=== PATIENT | female | born 1990 | race Two or more races ===

== ENCOUNTER 2023-07-12 09:05 | Inpatient (IN) | payer BC ==
[~2023-07-12] VITALS: Ht 160 cm; Wt 92.0 kg
[2023-07-12] VITALS (8 sets, daily range): BP systolic 116–148; BP diastolic 59–89; TEMP 98.3; O2SAT 96–99
[2023-07-12] MEDS ORDERED: PRENTAB9 PO (09:13)
[2023-07-12] MEDS ORDERED: LACTATED RINGER'S 1000 ML IV STA ×2 (09:46→09:48)
[2023-07-12 09:48] LABS: HEMATOCRIT 37.7 % (36.0-47.0); HEMOGLOBIN 12.8 g/dl (12.0-15.5); MEAN CORPUSCULAR HEMOGLOBIN 31.4 pg (27.0-33.0); MEAN CORPUSCULAR VOLUME 92.4 fl (80.0-96.0); PLATELET COUNT, AUTOMATED 197 10^3/uL (150-450); RED BLOOD COUNT 4.08 10^6/uL (4.00-5.40); WHITE BLOOD COUNT 18.3 10^3/uL (4.0-10.0)
[2023-07-12] MEDS ORDERED: NALOXONE INJ 0.4MG/1ML VIAL IV PRN ×2 (09:50)
[2023-07-12] MEDS ORDERED: ONDANSETRON 4MG 2ML VIAL IV PRN ×2 (09:50→11:15)
[2023-07-12] MEDS ORDERED: BICITRA 30ML SOLN UDC PO ONE ×2 (09:50→10:00)
[2023-07-12] MEDS ORDERED: diphenhydrAMINE 50MG/ML VIAL IV PRN (09:50)
[2023-07-12] MEDS ORDERED: METOCLOPRAMIDE INJ 10MG/2ML VIAL IV PRN ×2 (09:50)
[2023-07-12] MEDS ORDERED: OXYTOCIN DRIP 30 UNITS in IV 1 EA IV PRN (09:50)
[2023-07-12] MEDS ORDERED: **NOTE PATIENT COMMENT** MISC XX SCH (09:50)
[2023-07-12] MEDS ORDERED: CARBOPROST TROMETHAMINE 250 MCG/ML AMP IM PRN (09:50)
[2023-07-12] MEDS ORDERED: LIDOCAINE 1% MDV 20ML VIAL INFIL PRN (09:50)
[2023-07-12] MEDS ORDERED: TRANEXAMIC ACID INJection 1,000 MG in NS 100 ML IV PRN (09:50)
[2023-07-12] MEDS ORDERED: METHYLERGONOVINE MALEATE 0.2MG/ML 1ML VIAL IM PRN (09:50)
[2023-07-12] MEDS ORDERED: fentaNYL 100 MCG/2 ML INJECTION IV PRN (09:50)
[2023-07-12] MEDS ORDERED: LR 1,000 ML IV SCH ×2 (09:50)
[2023-07-12] MEDS ORDERED: MEPERIDINE 25 MG/ML 1ML VIAL IV PRN (09:50)
[2023-07-12] MEDS ORDERED: oxyCODONE 5MG TAB PO PRN (09:50)
[2023-07-12] MEDS ORDERED: AZITHROMYCIN INJ 500 MG, VIAL MATE ADAPTER 1 EACH in NS 250 ML IV ONE (10:00)
[2023-07-12] MEDS ORDERED: MORPHINE PRES-FREE INJ 10 MG/10 ML VIAL As Ordered ONE (10:20)
[2023-07-12] MEDS ORDERED: ACETAMINOPHEN 1000MG 100ML IV BAG As Ordered ONE (10:20)
[2023-07-12] MEDS ORDERED: ONDANSETRON 4MG 2ML VIAL As Ordered ONE (10:20)
[2023-07-12] MEDS ORDERED: OXYTOCIN 30UNITS IN 0.9% NaCl 500ML IV BAG As Ordered ONE ×2 (10:21→11:01)
[2023-07-12] MEDS ORDERED: KETOROLAC 60MG 2ML VIAL As Ordered ONE (10:35)
[2023-07-12 10:49] LABS: CORD GAS ABE A -9.2; CORD GAS HCO3 A 20.4 MMOL/L; CORD GAS O2 SAT A 32.2 %; CORD GAS PCO2 A 59.5 mmHg; CORD GAS PH A 7.154 UNITS; CORD GAS PO2 A 19.1 mmHg; CORD GAS SBC A 15.8 MMOL/L; CORD GAS TCO2 A 22.3 MMOL/L
[2023-07-12 10:51] LABS: CORD GAS ABE V -5.9; CORD GAS HCO3 V 21.8 MMOL/L; CORD GAS PCO2 V 50.5 mmHg; CORD GAS PH V 7.253 UNITS; CORD GAS PO2 V 28.3 mmHg; CORD GAS TCO2 V 23.3 MMOL/L
[2023-07-12] MEDS ORDERED: ceFAZolin SOD 2 GM in IV 1 EA IV ONE (11:00)
[2023-07-12] MEDS ORDERED: ePHEDrine SULFATE 25 MG/5 ML(5MG/ML) SYRINGE As Ordered ONE (11:09)
[2023-07-12] MEDS ORDERED: PHENYLephrine 500MCG 5ML (100MCG/ML) SYRINGE As Ordered ONE (11:10)
[2023-07-12] MEDS ORDERED: OXYTOCIN DRIP 30 UNITS in IV 1 EA IV SCH (11:15)
[2023-07-12] MEDS ORDERED: RHOGAM 300MCG (1500IU) INJ IM SCH (11:15)
[2023-07-12] MEDS ORDERED: SIMETHICONE 80MG CHEW TAB PO PRN (11:15)
[2023-07-12] MEDS ORDERED: ANUSOL HC CREAM 30GM TOP PRN (11:15)
[2023-07-12] MEDS ORDERED: MORPHINE 4 MG/ML 1ML VIAL IV PRN (11:15)
[2023-07-12] MEDS ORDERED: COLA100C5 PO (11:22)
[2023-07-12] MEDS ORDERED: IBUP80TA PO (11:22)
[2023-07-12] MEDS ORDERED: PERCOCET PO (11:22)
[2023-07-12] MEDS: SLF 3 ML SYR IV SCH ×2 (12:00→20:00)
[2023-07-12] MEDS ORDERED: HOME MED LIST COMPLETE! XX SCH (15:05)
[2023-07-12] MEDS ORDERED: ACETAMINOPHEN 500 MG TAB PO PRN (16:00)
[2023-07-12] MEDS: LR 1,000 ML IV SCH ×2 (16:12→19:59)
[2023-07-12] MEDS: DOCUSATE SODIUM 100MG CAPSULE PO SCH (19:55)
[2023-07-12] MEDS: KETOROLAC 30 MG/ML 1ML VIAL IV SCH (19:57)
[2023-07-13] MEDS: KETOROLAC 30 MG/ML 1ML VIAL IV SCH ×2 (01:05→06:16)
[2023-07-13 02:00] VITALS: BP 112/62; O2SAT 99
[2023-07-13] MEDS: LR 1,000 ML IV SCH (03:36)
[2023-07-13] MEDS: SLF 3 ML SYR IV SCH (04:07)
[2023-07-13 06:00] VITALS: BP 117/65; O2SAT 98
[2023-07-13 06:40] LABS: HEMATOCRIT 29.2 % (36.0-47.0); MEAN CORPUSCULAR HGB CONC 33.9 g/dl (32.0-36.5); MEAN CORPUSCULAR VOLUME 94.5 fl (80.0-96.0); PLATELET COUNT, AUTOMATED 166 10^3/uL (150-450); RED BLOOD COUNT 3.09 10^6/uL (4.00-5.40); WHITE BLOOD COUNT 12.7 10^3/uL (4.0-10.0)
[2023-07-13 06:45] LABS: HEMOGLOBIN 9.9 g/dl (12.0-15.5)
[2023-07-13] MEDS: PRENATAL VITAMINS CHEWABLE TABLET PO SCH (08:02)
[2023-07-13] MEDS: DOCUSATE SODIUM 100MG CAPSULE PO SCH ×2 (08:02→20:46)
[2023-07-13 10:00] VITALS: BP 111/62; O2SAT 98
[2023-07-13] MEDS: IBUPROFEN 800 MG TAB PO SCH ×2 (13:30→20:46)
[2023-07-13 14:00] VITALS: BP 131/68; O2SAT 98
[2023-07-13 18:00] VITALS: BP 121/71; O2SAT 96
[2023-07-13 22:00] VITALS: BP 120/65; O2SAT 96
[2023-07-13] MEDS: PERCOCET 5MG/325MG TAB PO PRN (23:15)
[2023-07-14 02:00] VITALS: BP 116/71; O2SAT 97
[2023-07-14] MEDS: IBUPROFEN 800 MG TAB PO SCH ×3 (04:57→20:58)
[2023-07-14 06:00] VITALS: BP 116/74; O2SAT 98
[2023-07-14] MEDS ORDERED: MEASLES,MUMPS,RUBELLA VACCINE INJ (MMR-II) SC.IMMUN ONE (09:00)
[2023-07-14] MEDS: DOCUSATE SODIUM 100MG CAPSULE PO SCH ×2 (09:26→20:58)
[2023-07-14] MEDS: PRENATAL VITAMINS CHEWABLE TABLET PO SCH (09:26)
[2023-07-14] MEDS: PERCOCET 5MG/325MG TAB PO PRN ×3 (09:27→23:38)
[2023-07-14 10:00] VITALS: BP 120/72; O2SAT 97
[2023-07-14 14:00] VITALS: BP 120/69; O2SAT 99
[2023-07-14 18:00] VITALS: BP 133/65; O2SAT 97
[2023-07-14 22:00] VITALS: BP 126/81; O2SAT 98
[2023-07-15] MEDS: IBUPROFEN 800 MG TAB PO SCH ×2 (05:33→12:29)
[2023-07-15 06:00] VITALS: BP 121/62; O2SAT 98
[2023-07-15] MEDS: PRENATAL VITAMINS CHEWABLE TABLET PO SCH (09:30)
[2023-07-15] MEDS: DOCUSATE SODIUM 100MG CAPSULE PO SCH (09:30)
== END 2023-07-15 12:40 | disposition home or self-care (01) | DRG 540 ==
LOC: M LDO 09:05 → M LDI 09:29 → M OBS 12:27
PROVIDERS: ADMIT Obstetrics & Gynecology; ATTEND Obstetrics & Gynecology
PROC: 10D00Z1 Extraction of Products of Conception, Low, Open Approach (ICD-10-PCS; principal; 2023-07-12 10:00)
DX: O34.211 Maternal care for low transverse scar from previous cesarean delivery (principal); O45.93 Premature separation of placenta, unspecified, third trimester; O76 Abnormality in fetal heart rate and rhythm complicating labor and delivery; O69.89X0 Labor and delivery complicated by other cord complications, not applicable or unspecified; Z37.0 Single live birth; Z3A.37 37 weeks gestation of pregnancy